=== PATIENT | male | born 1980 | race Two or more races ===

== ENCOUNTER 2018-07-06 20:20 | Emergency (ER) | payer OTHER ==
[~2018-07-06] VITALS: Ht 165.1 cm; Wt 68.0 kg
--- NOTE | 2018-07-06 20:48 | NUR ---
DR SCOTT INTO EVAL PATIENT
[2018-07-06] MEDS ORDERED: TDAP DIPH,PERTUSS,TET VAC/PF 0.5 ML DISP.SYRIN IM ONE ×2 (20:59→21:00)
[2018-07-06] MEDS ORDERED: SILVER SULFADIAZINE 1% CREAM 25 GM TUBE TP ONE (20:59)
[2018-07-06] MEDS ORDERED: SILVER SULFADIAZINE 1% CREAM 50 GM TP ONE (21:00)
--- NOTE | 2018-07-06 21:20 | NUR ---
DRESSING ORDERED ON LEFT HAND BURN
--- NOTE | 2018-07-06 21:27 | NUR ---
Patient discharged to home in stable conditon. Written and verbal after care instructions given. Patient verbalizes understanding of instructions WAS GIVEN [facility] 5MG RX AND REFERRAL TO [facility] [place]. WALKED OUT OF ER WITH NO DISTRESS NOTED
[2018-07-06 21:28] VITALS: BP 116/75
== END 2018-07-06 21:29 | disposition home or self-care (01) ==
LOC: ER 20:23
DX: T23.202A Burn of second degree of left hand, unspecified site, initial encounter (principal); T23.232A Burn of second degree of multiple left fingers (nail), not including thumb, initial encounter; X10.2XXA Contact with fats and cooking oils, initial encounter; Y93.89 Activity, other specified; Y92.89 Other specified places as the place of occurrence of the external cause; Y99.8 Other external cause status
CPT/HCPCS: 16020; 90715; A4663